=== PATIENT | female | born 1960 | race American Indian/Alaskan Native ===

== ENCOUNTER 2016-05-03 11:46 | Outpatient (CLI) | payer OTHER ==
--- NOTE | 2016-05-05 09:00 | Mammography Report ---
DIAGNOSTIC RIGHT MAMMOGRAM AND TARGETED RIGHT BREAST ULTRASOUND: HISTORY: Follow-up for right microcalcifications. The patient had microcalcifications discovered on a mammogram from [facility] in April of 2015. Further workup including microcalcifications were recommended at that time, but were not performed due to patient noncompliance. FINDINGS: The breasts are fibrofatty in appearance, and the overall parenchymal pattern is similar. A grouping of microcalcifications in the right breast at 3:00 were evaluated with spot magnification images. These are monomorphic and fairly widely dispersed especially in the MLO projection. There is no associated mass although an area of parenchymal asymmetry coincides with these calcifications on the CC projection. In the subareolar right breast, there is a circumscribed ovoid low-density asymmetry 2 cm from the nipple which was also present on the study in April of 2015. This is unchanged. However, sonographic evaluation of this area demonstrated no significant findings. IMPRESSION: 1. Stable right microcalcifications which have benign radiographic features. 2. Low-density subareolar nodule measuring less than 1 cm in diameter demonstrating benign features. This was not identified sonographically. BI-RADS CATEGORY: 2 = Benign ACR BI-RADS MAMMOGRAPHIC CODES: 0 = Needs additional imaging evaluation; 1 = Negative; 2 = Benign; 3 = Probably benign; 4 = Suspicious; 5 = Malignant; 6 = Known biopsy-proven malignancy COMMENT: 1. Dense breast tissue, i.e., adenosis, fibrocystic changes, etc., may obscure an underlying neoplasm. 2. Approximately 10% of cancers are not detected with mammography. 3. A negative mammography report should not delay biopsy if a clinically suspicious mass is present. RECOMMENDATION: Annual screening.
== END 2016-05-03 11:47 | disposition home or self-care (01) ==
LOC: SPVWC 11:46
PROVIDERS: ATTEND Surgery
DX: R92.8 Other abnormal and inconclusive findings on diagnostic imaging of breast (principal)
CPT/HCPCS: 76642; G0206

== ENCOUNTER 2017-05-05 14:49 | Outpatient (CLI) | payer OTHER ==
--- NOTE | 2017-05-05 15:29 | Mammography Report ---
Bilateral mammogram: Compared to . CAD study utilized. Findings: Predominance of adipose tissue bilaterally. Bilateral benign scattered calcifications. Cluster of calcification at and adjacent to the lymph nodes at the right lower axilla. No microcalcification in the breast parenchyma. Impression: Cluster of calcifications right lower axilla . Spot magnification views and if necessary sonographic examination recommended. Findings noted in the previous study.
== END 2017-05-05 14:50 | disposition home or self-care (01) ==
LOC: MAMMO 14:49
PROVIDERS: ATTEND Surgery
DX: Z12.31 Encounter for screening mammogram for malignant neoplasm of breast (principal)
CPT/HCPCS: 77067

== ENCOUNTER 2018-09-25 13:19 | Outpatient (CLI) | payer OTHER ==
[2018-09-25 13:41] LABS: Hematocrit 35.3 % (30.3-42.9); Mean Corpuscular HGB Conc 34 % (30-34); Mean Corpuscular Volume 97 fl (79-97); Platelet Count 221 K/mm3 (140-440); Red Blood Count 3.64 M/mm3 (3.65-5.03); Red Cell Distribution Width 13.3 % (13.2-15.2)
[2018-09-25 13:52] LABS: INR 0.96 (0.87-1.13)
[2018-09-25 13:53] LABS: Partial Thromboplastin Time 27.5 Sec. (24.2-36.6)
[2018-09-25 14:09] LABS: Alanine Aminotransferase 27 units/L (7-56); Albumin 4.5 g/dL (3.9-5); BUN/Creatinine Ratio 21; Blood Urea Nitrogen 17 mg/dL (7-17); Calcium 9.3 mg/dL (8.4-10.2); Hemolysis Index 4
== END 2018-09-25 13:20 | disposition home or self-care (01) ==
LOC: CARD 13:19
PROVIDERS: ATTEND Podiatrist Public Medicine
DX: R94.31 Abnormal electrocardiogram [ECG] [EKG] (principal); M79.672 Pain in left foot
CPT/HCPCS: 36415; 80053; 85027; 85610; 85730; 93005; 93010

== ENCOUNTER 2018-10-15 12:33 | Outpatient (CLI) | payer OTHER ==
--- NOTE | 2018-10-15 13:45 | XRay Report ---
BILATERAL FEET HISTORY: Hammertoes with surgery planned. COMPARISON: None. TECHNIQUE: 3 views of both feet were obtained. FINDINGS: Bones: No fracture or dislocation. Joint spaces: Maintained. Soft tissues: No significant abnormality. Additional findings: Bilateral plantar and Achilles enthesophytes, larger on the right than the left. Bilateral pes planus deformity. IMPRESSION: 1. Bilateral calcaneal enthesopathy, right worse than left. 2. Bilateral pes planus. 3. No acute change. Signer Name: Jamar Wheatley MD Signed: 10/15/2018 1:40 PM Workstation Name: [id number]
== END 2018-10-15 12:34 | disposition home or self-care (01) ==
LOC: XRAY 12:33
PROVIDERS: ATTEND Podiatrist Public Medicine
DX: M77.32 Calcaneal spur, left foot (principal); M77.31 Calcaneal spur, right foot

== ENCOUNTER 2018-11-01 11:48 | Emergency (ER) | payer OTHER ==
[2018-11-01 12:02] VITALS: BP 143/65
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
[2018-11-01] MEDS ORDERED: TORADOL IM ONE (13:12)
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
== END 2018-11-01 13:52 | disposition home or self-care (01) ==
LOC: ED 11:48
DX: M54.9 Dorsalgia, unspecified (principal); I10 Essential (primary) hypertension; J44.9 Chronic obstructive pulmonary disease, unspecified; E78.5 Hyperlipidemia, unspecified; G47.30 Sleep apnea, unspecified; Z88.0 Allergy status to penicillin; Z88.1 Allergy status to other antibiotic agents; Z88.2 Allergy status to sulfonamides; Z79.899 Other long term (current) drug therapy; V49.49XA Driver injured in collision with other motor vehicles in traffic accident, initial encounter; Y93.89 Activity, other specified; Y92.89 Other specified places as the place of occurrence of the external cause; Y99.8 Other external cause status
CPT/HCPCS: 72100; 96372; 99283; J1885

== ENCOUNTER 2019-02-21 12:52 | Outpatient (CLI) | payer OTHER ==
--- NOTE | 2019-02-25 12:16 | Magnetic Resonance Report ---
BILATERAL BREAST MR WITHOUT AND WITH GADOLINIUM INDICATION: Family history of breast cancer. COMPARISONS: 05/23/2018 screening mammogram TECHNIQUE: Axial 1.0 mm T1 without, axial high-resolution 2.0 mm T2 and axial 1.0 mm dynamic vibrant high-resolution postcontrast T1 fat saturation sequences on a 1.5 Heather magnet. The examination was p erformed with an 8-channel dedicated [employer] breast coil. Post-processing with CAD and subtraction was performed on an [employer] workstation. 18.0 cc of MultiHance was injected without incident for the c ontrast portion of the exam. Consent was obtained prior to the administration of the contrast. FINDINGS: Motion degrades the quality of the exam. RIGHT BREAST: Mild background parenchymal enhancement. A 7 mm nonenhancing mass approximately 3 cm fr om the nipple correlates with a mammographic asymmetry at 8:00. No other mass and no suspicious enhan cement. No suspicious lymph nodes. LEFT BREAST: Mild background parenchymal enhancement. No mass or suspicious enhancement. IMPRESSION: 1. Negative study with no suspicious findings. 2. A benign 7 mm right breast mass at 8:00. 3.Recommend routine mammographic screening. BI-RADS Category 2: Benign Signer Name: Jamar Wheatley MD Signed: 02/25/2019 12:11 PM Workstation Name: [id number]
== END 2019-02-21 12:53 | disposition home or self-care (01) ==
LOC: SPVIMAG 12:52
PROVIDERS: ATTEND Surgery
DX: N63.13 Unspecified lump in the right breast, lower outer quadrant (principal); Z80.3 Family history of malignant neoplasm of breast
CPT/HCPCS: A9577; C8908; 77049

== ENCOUNTER 2019-06-12 07:19 | Outpatient (CLI) | payer OTHER ==
--- NOTE | 2019-06-12 08:47 | Cat Scan Report ---
CT NECK WITHOUT CONTRAST HISTORY: Localized swelling, mass and lump. Next swelling across front of neck, thyroid area for 3 mo nths. TECHNIQUE: Helical CT without IV contrast. Sagittal and coronal reformatted images. All CT scans at t his location are performed using CT dose reduction for ALARA by means of automated exposure control. COMPARISON: None. FINDINGS: The imaged brain is unremarkable. The skull base and sinuses and mastoid air cells are within normal limits. Tiny 5 mm mucous retention cyst in the right maxillary sinus is noted. The parotid, carotid, retropharyngeal, prevertebral, pharyngeal mucosal and cardboard inserter spaces are unremarkable. No evidence for mass, adenopathy or inflammation. The thyroid gland is normal size and density. No mass or abnor mality. Anterior subcutaneous tissues are slightly prominent but no suspicious lesion is appreciated. The bony structures are intact with minimal multilevel degenerative disc disease. The lung apices are clear. IMPRESSION: Unremarkable CT neck without contrast. Signer Name: Donovan Vaughn Jr, MD Signed: 06/12/2019 8:42 AM Workstation Name: [id number]
== END 2019-06-12 07:20 | disposition home or self-care (01) ==
LOC: CT 07:19
PROVIDERS: ATTEND Internal Medicine Critical Care Medicine
DX: J34.1 Cyst and mucocele of nose and nasal sinus (principal); R22.1 Localized swelling, mass and lump, neck
CPT/HCPCS: 70490

== ENCOUNTER 2020-08-25 13:07 | Outpatient (CLI) | payer OTHER ==
--- NOTE | 2020-08-25 14:32 | Mammography Report ---
BILATERAL DIGITAL SCREENING MAMMOGRAM WITH CAD WITH TOMOSYNTHESIS HISTORY: Screening mammogram. TECHNIQUE: Routine digital mammographic imaging performed. This examination was interpreted with sukh bhakta benefit of Computer-aided Detection analysis. Tomosynthesis images were processed and reviewed. COMPARISON: 08/21/2019, 05/23/2018, 05/23/2017, 05/05/2017. FINDINGS: Breast Density: scattered fibroglandular appearance of the breast tissue. Digital CC and MLO views demonstrate no mammographic evidence of malignancy. Stable right lower oute r periareolar breast lesion. Long-term stability would support a benign etiology. IMPRESSION: No mammographic evidence of malignancy. If the clinical examination remains stable, recommend bilate ral mammogram in approximately one year. BIRADS 2: Benign Finding(s). FURTHER INFORMATION: According to the [employer], yearly mammograms are recommend ed starting at age 40 and continuing as long as a woman is in good health. Clinical Breast Exams shou ld be part of a periodic health exam-about every 3 years for women in their 20s and 30s and every yea r for women 40 and over. Breast self exam is an option for women starting in their 20s. Any breast ch caprice noted on a breast self exam should be reported promptly to the patient's healthcare provider. Br east MRI is recommended for women with an approximately 20-25% or greater lifetime risk of breast can cer, including women with a strong family history of breast or ovarian cancer and women who have been treated for Hodgkin's disease. A negative Mammography report should not discourage follow up or biopsy of a clinically significant f inding and/or abnormality. Dense breast tissue may obscure small neoplasms. The patient will be entered into a reminder system with a target due date for the next screening mamm ogram. Signer Name: John Luciano MD Signed: 08/25/2020 2:28 PM Workstation Name: [id number]
== END 2020-08-25 13:08 | disposition home or self-care (01) ==
LOC: SPVWC 13:07
PROVIDERS: ATTEND Surgery
DX: Z12.31 Encounter for screening mammogram for malignant neoplasm of breast (principal); N64.89 Other specified disorders of breast
CPT/HCPCS: 77063; 77067